=== PATIENT | male | born 1985 | race Caucasian/White ===

== ENCOUNTER 2024-03-28 15:51 | Emergency (ER) | payer OTHER ==
[~2024-03-28] VITALS: Ht 182.9 cm; Wt 65.0 kg
[~2024-03-28 15:51] MED LIST: ASPERCREME1 EACH TP; CYCLOBENZAPRINE10 MG PO; MOTRIN IB200 M1 PO
[2024-03-28] MEDS ORDERED: diazePAM 10 MG/2 ML SYR IV ONE (16:45)
[2024-03-28] MEDS ORDERED: KETOROLAC TROMETHAMINE 30 MG/ML VIAL IV ONE (16:45)
[2024-03-28] MEDS ORDERED: LIDOCAINE HCL 4% 1 EACH PATCH TD ONE (16:45)
[2024-03-28] MEDS ORDERED: CYCLOBENZAPRINE10 MG PO (19:19)
[2024-03-28] MEDS ORDERED: LIDODERM1 EACH TOP (19:19)
[2024-03-28] MEDS ORDERED: KETOROLAC TROME10 MG PO (19:19)
[2024-03-28 19:26] VITALS: BP 109/69
[2024-03-28] MEDS ORDERED: LIDOCAINE PATCH REMOVAL 1 EA TD SCH (21:00)
== END 2024-03-28 19:26 | disposition home or self-care (01) ==
LOC: ED 15:51
DX: M54.50 Low back pain, unspecified (principal); G89.29 Other chronic pain
CPT/HCPCS: 96374; 96375; 99283-25; A9270; J1885; J3360